=== PATIENT | male | born 1975 | race African-American/Black ===

== ENCOUNTER 2016-10-07 23:45 | Emergency (ER) | payer OTHER ==
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
[~2016-10-07 23:45] MED LIST: BENADRYL PO; FLONASE 0.05% N16 G1; LISINOPRIL; METFORMIN HCL500 M1; MOTRIN600 M1 PO; ORUDIS75 M1 DOB
[2016-10-07] MEDS ORDERED: GLIPIZIDE5 GM PO (23:46)
[2016-10-07] MEDS ORDERED: GLIPIZIDE10 MG PO (23:46)
[2016-10-07] MEDS ORDERED: LIPITOR40 MG PO (23:46)
[2016-10-07] MEDS ORDERED: JANUVIA50 MG PO (23:47)
[2016-10-12] MEDS ORDERED: LISINOPRIL-HCTZ1 T14 (23:59)
== END 2016-10-08 01:08 | disposition home or self-care (01) ==
LOC: SED 23:45
DX: S16.1XXA Strain of muscle, fascia and tendon at neck level, initial encounter (principal); S29.012A Strain of muscle and tendon of back wall of thorax, initial encounter; E11.9 Type 2 diabetes mellitus without complications; I10 Essential (primary) hypertension; Z88.0 Allergy status to penicillin; Z79.899 Other long term (current) drug therapy; V49.40XA Driver injured in collision with unspecified motor vehicles in traffic accident, initial encounter; Y93.89 Activity, other specified; Y92.410 Unspecified street and highway as the place of occurrence of the external cause
CPT/HCPCS: 72040; 72072; 99284

== ENCOUNTER 2016-10-13 00:36 | Emergency (ER) | payer OTHER ==
[~2016-10-13 00:36] MED LIST changes: +GLIPIZIDE10 MG PO; +GLIPIZIDE5 GM PO; +JANUVIA50 MG PO; +LIPITOR40 MG PO; +LISINOPRIL-HCTZ1 T14
== END 2016-10-13 00:39 | disposition left against medical advice (07) ==
LOC: SED 00:36
DX: Z53.21 Procedure and treatment not carried out due to patient leaving prior to being seen by health care provider (principal)

== ENCOUNTER → 2016-10-14 | Outpatient (CLI) | payer OTHER ==
--- NOTE | ~2016-10-14 | EKG ---
PATIENT: GIANA MCKENZIE UNIT #: [id number] Ventricular Rate: 66 BPM Atrial Rate: 66 BPM P-R Interval: 126 ms QRS Duration: 110 ms Q-T Interval: 390 ms QTC Calculation(Bezet): 408 ms P Martell: 36 degrees Calculated R Martell: 38 degrees Calculated T Martell: 11 degrees Diagnosis Line: Normal sinus rhythm Diagnosis Line: Normal ECG Diagnosis Line: When compared with ECG of 25-AUG-2013 06:27, Diagnosis Line: No significant change was found Diagnosis Line: Confirmed by ANTONIO JOHNSON MD ([id number]) on 10/18/2016 Diagnosis Line: 9:39:25 AM INTERPRETING MD: ELIZABETH YU
[2016-10-14 10:14] LABS: HEMATOCRIT 43.5 % (38.0-50.0); HEMOGLOBIN 13.6 gm/dL (13.0-16.0); MEAN CELL VOLUME 82.6 FL (83-96); MEAN CORPUSCULAR HEMOGLOBIN 25.9 PG (28-34); MEAN CORPUSCULAR HGB CONC 31.3 g/dL (30-36); MEAN PLATELET VOLUME 8.5 FL (6.5-11.5); RED BLOOD COUNT 5.26 X10e (3.90-5.60); RED CELL DISTRIBUTION WIDTH 15.3 % (11.0-15.5); WHITE BLOOD COUNT 8.8 X10e3 (4.0-10.5)
[2016-10-14 10:20] LABS: BUN/CREATININE RATIO 17.72; CREATININE SERUM 2.2 mg/dL (0.6-1.4); GLOM FILT RATE Estimated 42.6 mL/min (>60); POTASSIUM 4.6 mmol/L (3.5-5.1)
== END | disposition home or self-care (01) ==
LOC: SLAB 09:38
PROVIDERS: Urology
DX: Z01.818 Encounter for other preprocedural examination (principal); N48.1 Balanitis; N39.43 Post-void dribbling
CPT/HCPCS: 36415; 80048; 85027; 93005

== ENCOUNTER → 2016-10-16 | Outpatient (CLI) | payer OTHER ==
--- NOTE | ~2016-10-16 | US77 ---
[facility] A Service of [facility] & [facility] RADIOLOGY TEXT RESULTS PATIENT: GIANA MCKENZIE LOCATION: SG : 75 UNIT #: [id number] AGE: [address]: Dorota Munoz MD SEX: M ORDER DR: [id number] [address] [address] [id number] O MR#: [id number] Acc #: [id number] NAME: GIANA MCKENZIE : 1975 SEX: M STUDY DATE/TIME: 10/16/2016 14:55 UNIT: [facility] ROOM: STUDY DESCRIPTION: US Kidney Bilateral Complete Attending Physician: Dorota Munoz M.D. Referring Physician: Dorota Munoz M.D. Ordering Physician: Dorota Munoz M.D. Primary Care Physician: Zi Hunter M.D. MEDICAL IMAGING REPORT This report is preliminary unless electronic signature is present. EXAM Renal ultrasound HISTORY Chronic kidney disease, stage III, elevated creatinine of 2.19. FINDINGS Longitudinal and transverse sonograms of the kidneys are obtained. The right kidney measures at least 12.4 cm. Left kidney was not well seen and in fact was not measured on the study. There is no hydronephrosis in either kidney. Bladder appears unremarkable. It measures 8.2 x 6.0 x 4.9 cm for volume of 126 mL. CONCLUSION Limited visualization of the kidneys particularly on the left. Right kidney is of normal size, left kidney could not be measured accurately. There is no hydronephrosis or hydroureter. The bladder appears normal. Dictated by... Montana Nelson M.D. THIS IS AN ELECTRONICALLY VERIFIED REPORT Montana Nelson M.D. at 10/17/2016 10:35 AM Martin TD: 10/17/2016 06:00 JOB #: [id number] MEDICAL IMAGING REPORT Page 1 of 1
== END | disposition home or self-care (01) ==
LOC: SGUS 14:37
DX: N18.3 Chronic kidney disease, stage 3 (moderate) (principal)
CPT/HCPCS: 76775